=== PATIENT | male | born 1955 | race Asian ===

== ENCOUNTER 2020-09-09 17:36 | Inpatient (IN) | payer MEDICARE, OTHER ==
[~2020-09-09] VITALS: Ht 165.1 cm; Wt 92.5 kg
[2020-09-09] MEDS ORDERED: ALBUTEROL SULFATE 8 GM HFA.AER.AD IH PRN (20:30)
[2020-09-09] MEDS ORDERED: DEXTROSE 50% 50 ML DISP.SYRIN IV PRN (20:30)
[2020-09-09] MEDS ORDERED: ONDANSETRON 4 MG/2 ML VIAL IV PRN (20:30)
[2020-09-09] MEDS ORDERED: ACET-2154 PO (20:52)
[2020-09-09] MEDS ORDERED: GABA-532 PO (20:52)
[2020-09-09] MEDS ORDERED: INSU100I26 SQ (20:52)
[2020-09-09] MEDS ORDERED: ASPI81TA31 PO (20:52)
[2020-09-09] MEDS ORDERED: METF-442 PO (20:52)
[2020-09-09] MEDS ORDERED: SIMV10TA98 PO (20:52)
[2020-09-09] MEDS ORDERED: QUIN20TA18 PO (20:52)
[2020-09-09] MEDS ORDERED: INSU100V39 SQ (20:52)
[2020-09-09] MEDS: BLOOD SUGAR DIAGNOSTIC 1 EACH STRIP VI SCH (21:00)
[2020-09-09 22:00] VITALS: BP 128/83
--- NOTE | 2020-09-09 22:00 | NUR ---
Admitted a 65 yr old male who was transferred from [facility] for continuity of care via rney accompanied by 2 bilingual research interviewer .DX of covid 19 PNA.Patient alert x 4.speech clear.On RA,on isolation precaution.Denies pain.No acute distress noted.Ambulates to bathroom .Voided well.IV on right AC 20 g patent and intact.No s/s of infiltration.Bs checked 81. Body assessment done.Skin intact.Troy Rollins aware of patient's admission.Medication reconciled .Safety measures in place.Call light and belonging are with in reach.Will continue to monitor.
[2020-09-09] MEDS ORDERED: AZITHROMYCIN 500 MG VIAL IV ONE (23:05)
[2020-09-10] VITALS (7 sets, daily range): BP systolic 98–156; BP diastolic 53–76
[2020-09-10] MEDS: ACETAMINOPHEN 325 MG TABLET PO PRN ×4 (02:21→23:27)
[2020-09-10] MEDS: BLOOD SUGAR DIAGNOSTIC 1 EACH STRIP VI SCH ×4 (06:41→20:43)
--- NOTE | 2020-09-10 06:52 | NUR ---
Patient slept intermittently .C/o discomfort last night.Medicated with tylenol with good result.No acute distress noted through out the night.All needs anticipated and met accordingly.Will endorse to oncoming shift.
[2020-09-10 07:39] LABS: BASOPHILS % (AUTO) 0.6 % (0.0-2.0); EOSINOPHILS % (AUTO) 0.2 % (0.0-7.0); HEMATOCRIT 34.5 % (36.7-47.1); HEMOGLOBIN 11.4 g/dL (12.5-16.3); LYMPHOCYTES # (AUTO) 0.8 K/uL (20.0-40.0); LYMPHOCYTES % (AUTO) 10.6 % (20.5-51.5); MEAN CORPUSCULAR HEMOGLOBIN 28.7 uug (23.8-33.4); MEAN CORPUSCULAR HGB CONC 33 g/dL (32.5-36.3); MEAN CORPUSCULAR VOLUME 86.5 fL (73.0-96.2); MONOCYTES # (AUTO) 0.6 K/uL (2.0-10.0); MONOCYTES % (AUTO) 7.2 % (0.0-11.0); NEUTROPHILS # (AUTO) 6.4 K/uL (1.8-8.9); NEUTROPHILS % (AUTO) 81.4 % (38.5-71.5); PLATELET COUNT (AUTO) 298 K/uL (152-348); RED BLOOD CELL COUNT(AUTO) 3.98 MIL/uL (4.06-5.63); WHITE BLOOD COUNT (AUTO) 7.8 K/uL (3.6-10.2)
[2020-09-10 08:06] LABS: BILIRUBIN,TOTAL 0.5 mg/dL (0.2-1.0); CREATININE 1.3 mg/dL (0.6-1.3); POTASSIUM 4.1 mmol/L (3.5-5.1); TOTAL PROTEIN, SERUM 8.2 g/dL (6.4-8.2)
[2020-09-10] MEDS: INSULIN REGULAR, HUMAN 300 UNIT/3 ML VIAL SQ PRN ×2 (08:15→11:56)
[2020-09-10] MEDS: ENOXAPARIN SODIUM 30 MG/0.3 ML DISP.SYRIN SUBCUT SCH (08:15)
[2020-09-10] MEDS: ASPIRIN 81 MG TAB.CHEW PO SCH (08:17)
[2020-09-10] MEDS ORDERED: GABAPENTIN 100 MG CAPSULE PO SCH (09:00)
[2020-09-10] MEDS ORDERED: [UNRECOGNIZED DRUG - REMARK] (11:28)
[2020-09-10] MEDS: LISINOPRIL 20 MG TABLET PO SCH (11:54)
[2020-09-10] MEDS ORDERED: glipiZIDE 5 MG TABLET PO SCH (13:30)
[2020-09-10] MEDS: TRIAMCINOLONE ACET 0.1% OINT 80 GM TUBE TP SCH ×2 (14:40→16:53)
[2020-09-10] MEDS: DEXAMETHASONE SOD PHOSPHATE 10 MG INJ IV SCH (14:44)
[2020-09-10] MEDS ORDERED: SIMVASTATIN 10 MG TABLET PO SCH ×2 (18:00)
--- NOTE | 2020-09-10 19:02 | NUR ---
Patient had Temp 103 earlier. Gave Tylenol and applied ice packs. Patient stated feeling better and temp 98.5. No other complaints at this time
[2020-09-10] MEDS: INSULIN REGULAR, HUMAN 300 UNITS/3 ML VIAL SQ PRN (20:45)
[2020-09-10] MEDS: AZITHROMYCIN IV 500 MG in IV DEXTROSE 5% 250 ML IV SCH (23:17)
[2020-09-11 00:02] VITALS: BP 128/70
[2020-09-11 04:00] VITALS: BP 121/63
[2020-09-11] MEDS: glipiZIDE 5 MG TABLET PO SCH ×2 (06:16→17:27)
[2020-09-11] MEDS: BLOOD SUGAR DIAGNOSTIC 1 EACH STRIP VI SCH ×4 (06:21→21:07)
--- NOTE | 2020-09-11 07:30 | NUR ---
Received patient in bed awake alert and oriented times 4. No sign of distress noted at this time. No SOB noted. Patient is in isolation. Safety precautions in place with call light and belongings within reach. Will continue to monitor.
[2020-09-11] MEDS: DEXAMETHASONE SOD PHOSPHATE 10 MG INJ IV SCH (08:37)
[2020-09-11] MEDS: INSULIN REGULAR, HUMAN 300 UNIT/3 ML VIAL SQ PRN ×3 (08:42→17:31)
[2020-09-11] MEDS: ENOXAPARIN SODIUM 30 MG/0.3 ML DISP.SYRIN SUBCUT SCH (08:43)
[2020-09-11] MEDS: LISINOPRIL 20 MG TABLET PO SCH (08:52)
[2020-09-11] MEDS: ASPIRIN 81 MG TAB.CHEW PO SCH (08:53)
[2020-09-11] MEDS: TRIAMCINOLONE ACET 0.1% OINT 80 GM TUBE TP SCH ×2 (08:53→17:27)
[2020-09-11] MEDS ORDERED: CEFTRIAXONE 1 G VIAL IM SCH (11:15)
[2020-09-11 12:04] VITALS: BP 132/63
[2020-09-11] MEDS: CEFTRIAXONE 1 G in IV DEXTROSE 5% 50 ML IV SCH (13:47)
[2020-09-11 16:08] VITALS: BP 126/60
--- NOTE | 2020-09-11 18:59 | NUR ---
Patient is resting in bed. No sign of distress noted. Gave all medications as ordered. Safety precautions are in place with call light and belongings within reach. Will endorse to oncoming nurse.
--- NOTE | 2020-09-11 19:30 | NUR ---
Pt received in bed, awake, Denies any SOB or pain at this time. On RA sating at 96%. Will continue to monitor.
[2020-09-11 20:12] VITALS: BP 141/70
[2020-09-11] MEDS: SIMVASTATIN 20 MG TABLET PO SCH (20:42)
[2020-09-11] MEDS: INSULIN REGULAR, HUMAN 300 UNITS/3 ML VIAL SQ PRN (21:11)
[2020-09-11] MEDS: AZITHROMYCIN IV 500 MG in IV DEXTROSE 5% 250 ML IV SCH (22:06)
[2020-09-12 00:26] VITALS: BP 132/69
[2020-09-12 04:16] VITALS: BP 139/67
[2020-09-12] MEDS: glipiZIDE 5 MG TABLET PO SCH ×2 (06:30→16:31)
[2020-09-12] MEDS: BLOOD SUGAR DIAGNOSTIC 1 EACH STRIP VI SCH ×4 (06:34→21:07)
[2020-09-12] MEDS: INSULIN REGULAR, HUMAN 300 UNIT/3 ML VIAL SQ PRN ×3 (06:36→17:44)
[2020-09-12 08:21] LABS: BASOPHILS % (AUTO) 0.3 % (0.0-2.0); HEMATOCRIT 32.1 % (36.7-47.1); HEMOGLOBIN 10.8 g/dL (12.5-16.3); LYMPHOCYTES # (AUTO) 1.2 K/uL (20.0-40.0); LYMPHOCYTES % (AUTO) 11.2 % (20.5-51.5); MEAN CORPUSCULAR HEMOGLOBIN 28.6 uug (23.8-33.4); MEAN CORPUSCULAR HGB CONC 34 g/dL (32.5-36.3); MEAN CORPUSCULAR VOLUME 85.1 fL (73.0-96.2); MONOCYTES # (AUTO) 0.7 K/uL (2.0-10.0); MONOCYTES % (AUTO) 6.2 % (0.0-11.0); NEUTROPHILS # (AUTO) 8.9 K/uL (1.8-8.9); NEUTROPHILS % (AUTO) 82.3 % (38.5-71.5); PLATELET COUNT (AUTO) 316 K/uL (152-348); RED BLOOD CELL COUNT(AUTO) 3.77 MIL/uL (4.06-5.63); WHITE BLOOD COUNT (AUTO) 10.8 K/uL (3.6-10.2)
[2020-09-12] MEDS: ASPIRIN 81 MG TAB.CHEW PO SCH (08:25)
[2020-09-12] MEDS: ENOXAPARIN SODIUM 30 MG/0.3 ML DISP.SYRIN SUBCUT SCH (08:27)
[2020-09-12] MEDS: TRIAMCINOLONE ACET 0.1% OINT 80 GM TUBE TP SCH ×2 (08:27→17:00)
[2020-09-12] MEDS: LISINOPRIL 20 MG TABLET PO SCH (08:32)
[2020-09-12 08:45] LABS: BILIRUBIN,TOTAL 0.5 mg/dL (0.2-1.0); CREATININE 1.3 mg/dL (0.6-1.3); MAGNESIUM 2.5 mg/dL (1.8-2.4); PHOSPHOROUS 1.9 mg/dL (2.5-4.9); POTASSIUM 4.3 mmol/L (3.5-5.1); TOTAL PROTEIN, SERUM 7.8 g/dL (6.4-8.2)
[2020-09-12] MEDS: DEXAMETHASONE SOD PHOSPHATE 10 MG INJ IV SCH ×2 (09:00→14:28)
--- NOTE | 2020-09-12 09:43 | NUR ---
Pt slept throughout the night. Denies any pain or SOB at this time. Tolerated all medications well. Pt is on RA with no s/s of respiratory distress. Sinus rhythm on the monitor. Safety and comfort provided.
--- NOTE | 2020-09-12 09:43 | NUR ---
Not able to give Decadron IV due to infiltration of IV. Holding medication until new IV can be started
[2020-09-12] MEDS ORDERED: NEUTRA PHOS PACKET PO ONE (10:45)
[2020-09-12 12:42] VITALS: BP 146/77
[2020-09-12] MEDS: ACETAMINOPHEN 325 MG TABLET PO PRN ×2 (13:37→21:07)
[2020-09-12] MEDS: CEFTRIAXONE 1 G in IV DEXTROSE 5% 50 ML IV SCH (14:41)
--- NOTE | 2020-09-12 14:44 | NUR ---
Midline was inserted and Decadron dose was given
--- NOTE | 2020-09-12 15:30 | NUR ---
RECEIVED PT AWAKE, ALERT AND ORIENTEDX4..IV INTACT. SAFETY AND COMFORT PROVIDED. WILL CONTINUE TO MONITOR.
[2020-09-12 16:02] VITALS: BP 113/73
[2020-09-12 20:34] VITALS: BP 151/68
[2020-09-12] MEDS: SIMVASTATIN 20 MG TABLET PO SCH (21:07)
[2020-09-12] MEDS: INSULIN REGULAR, HUMAN 300 UNITS/3 ML VIAL SQ PRN (21:09)
[2020-09-12] MEDS: AZITHROMYCIN IV 500 MG in IV DEXTROSE 5% 250 ML IV SCH (22:36)
[2020-09-13 00:48] VITALS: BP 118/72
[2020-09-13 05:53] VITALS: BP 141/72
[2020-09-13] MEDS: BLOOD SUGAR DIAGNOSTIC 1 EACH STRIP VI SCH ×4 (06:33→21:18)
[2020-09-13] MEDS: glipiZIDE 5 MG TABLET PO SCH ×2 (06:34→16:44)
--- NOTE | 2020-09-13 06:40 | NUR ---
PT IN NO ACUTE DISTRESS. PRESCRIBED MEDICATION GIVEN AND PT TOLERATED IT WELL.RECENT BLOOD SUGAR IS 201. PT NOTED TO STILL HAVE COUGH. SAFETY AND COMFORT PROVIDED. WILL ENDORSE TO INCOMING NURSE FOR CONTINUITY OF CARE.
--- NOTE | 2020-09-13 07:30 | NUR ---
Received patient in bed awake alert and oriented times 4. No sign of distress noted at this time. No SOB noted. Patient is in isolation for Covid 19. Safety precautions in place with call light and belongings within reach. Will continue to monitor.
[2020-09-13] MEDS: ASPIRIN 81 MG TAB.CHEW PO SCH (08:27)
[2020-09-13] MEDS: DEXAMETHASONE SOD PHOSPHATE 10 MG INJ IV SCH (08:27)
[2020-09-13] MEDS: INSULIN REGULAR, HUMAN 300 UNIT/3 ML VIAL SQ PRN ×3 (08:29→17:47)
[2020-09-13] MEDS: LISINOPRIL 20 MG TABLET PO SCH (08:43)
[2020-09-13] MEDS: ENOXAPARIN SODIUM 30 MG/0.3 ML DISP.SYRIN SUBCUT SCH (08:46)
[2020-09-13] MEDS: TRIAMCINOLONE ACET 0.1% OINT 80 GM TUBE TP SCH ×2 (08:46→16:47)
[2020-09-13] MEDS: ACETAMINOPHEN 325 MG TABLET PO PRN ×2 (09:09→21:00)
[2020-09-13 11:53] VITALS: BP 132/64
[2020-09-13] MEDS: CEFTRIAXONE 1 G in IV DEXTROSE 5% 50 ML IV SCH (12:38)
[2020-09-13 16:18] VITALS: BP 139/71
--- NOTE | 2020-09-13 18:55 | NUR ---
Patient is resting in bed, patient's saturation has been in the 90-91 range. MD made aware. Chest xray ordered for tomorrow. All medications given as ordered. Safety precautions in place with call light and belongings within reach. Will endorse to the oncoming nurse.
--- NOTE | 2020-09-13 19:30 | NUR ---
RECEIVED PT AWAKE, ALERT AND ORIENTEDX4. PT IN O ACUTE DISTRESS. IV INTACT. SAFETY AND COMFORT PROVIDED. WILL CONTINUE TO MONITOR.
[2020-09-13 20:00] VITALS: BP 132/71
[2020-09-13] MEDS: SIMVASTATIN 20 MG TABLET PO SCH (20:55)
[2020-09-13] MEDS: INSULIN REGULAR, HUMAN 300 UNITS/3 ML VIAL SQ PRN (21:19)
[2020-09-13] MEDS: AZITHROMYCIN IV 500 MG in IV DEXTROSE 5% 250 ML IV SCH (22:23)
[2020-09-13 23:59] VITALS: BP 117/67
[2020-09-14 04:53] VITALS: BP 123/69
--- NOTE | 2020-09-14 06:15 | NUR ---
PT SLEPT INTERMITTENTLY. PT IN NO RESPIRATORY DISTRESS. IV INTACT. PT WAS PUT ON OXYGEN AT 2L NASAL CANNULA BECAUSE PT OXYGEN SATURATION IS 88-89%. PT TOLERATED IT WELL. TITRATE IT AGAIN AND NOW ON ROOM AIR AND OXYGEN SATURATION IS 92%. PRESCRIBED MEDICATION GIVEN AND PT TOLERATED IT WELL. PT AFEBRILE. SAFETY AND COMFORT PROVIDED. ALL NEEDS ARE MET. WILL ENDORSE TO INCOMING NURSE FOR CONTINUITY OF CARE.
[2020-09-14] MEDS: BLOOD SUGAR DIAGNOSTIC 1 EACH STRIP VI SCH ×4 (06:40→20:18)
[2020-09-14] MEDS: glipiZIDE 5 MG TABLET PO SCH ×2 (06:40→16:24)
--- NOTE | 2020-09-14 06:48 | NUR ---
PT PUT O 2L NASAL CANNULA . OXYGEN SATURATION AT 88%. CHARGE NURSE AWARE. PT TOLERATING 2L OXYGEN. WILL CONTINUE TO MONITOR.
[2020-09-14 08:12] LABS: BASOPHILS % (AUTO) 0.1 % (0.0-2.0); HEMATOCRIT 33.9 % (36.7-47.1); HEMOGLOBIN 11.5 g/dL (12.5-16.3); LYMPHOCYTES # (AUTO) 1.1 K/uL (20.0-40.0); LYMPHOCYTES % (AUTO) 5.1 % (20.5-51.5); MEAN CORPUSCULAR HGB CONC 34 g/dL (32.5-36.3); MEAN CORPUSCULAR VOLUME 85.5 fL (73.0-96.2); MONOCYTES % (AUTO) 4.9 % (0.0-11.0); NEUTROPHILS # (AUTO) 18.7 K/uL (1.8-8.9); NEUTROPHILS % (AUTO) 89.9 % (38.5-71.5); PLATELET COUNT (AUTO) 441 K/uL (152-348); RED BLOOD CELL COUNT(AUTO) 3.97 MIL/uL (4.06-5.63); WHITE BLOOD COUNT (AUTO) 20.8 K/uL (3.6-10.2)
[2020-09-14] MEDS: INSULIN REGULAR, HUMAN 300 UNIT/3 ML VIAL SQ PRN ×3 (08:26→16:59)
[2020-09-14 08:30] LABS: CREATININE 1.1 mg/dL (0.6-1.3); MAGNESIUM 2.8 mg/dL (1.8-2.4); PHOSPHOROUS 2.6 mg/dL (2.5-4.9); POTASSIUM 4.6 mmol/L (3.5-5.1)
[2020-09-14] MEDS: DEXAMETHASONE SOD PHOSPHATE 10 MG INJ IV SCH (09:12)
[2020-09-14] MEDS: ASPIRIN 81 MG TAB.CHEW PO SCH (09:12)
[2020-09-14] MEDS: LISINOPRIL 20 MG TABLET PO SCH (09:13)
[2020-09-14] MEDS: TRIAMCINOLONE ACET 0.1% OINT 80 GM TUBE TP SCH ×2 (09:14→17:07)
[2020-09-14] MEDS: ENOXAPARIN SODIUM 30 MG/0.3 ML DISP.SYRIN SUBCUT SCH (09:14)
[2020-09-14 12:00] VITALS: BP 142/74
[2020-09-14] MEDS: CEFTRIAXONE 1 G in IV DEXTROSE 5% 50 ML IV SCH (12:11)
[2020-09-14 16:00] VITALS: BP 151/70
[2020-09-14] MEDS ORDERED: REMDESIVIR (CHARGED) 200 MG in IV NORMAL SALINE 210 ML IV ONE (16:00)
--- NOTE | 2020-09-14 16:15 | NUR ---
SEEN BY REGIS VILLASEÑOR NP. PATIENT AWARE OF NEW MEDICATION TO BE STARTED TODAY. PATIENT ON 2L O2 NC, SATURATING BETWEEN 89-92%. ABLE TO AMBULATE. DENIES PAIN AT THIS TIME. NO S/S OF DISTRESS OR SOB NOTED AT THIS TIME. IV ACCESS ON RIGHT UPPER ARM MIDLINE, FLUSHING AND PATENT. ALL NEEDS MET. SAFETY PRECAUTIONS IN PLACE. WILL CONTINUE TO MONITOR.
--- NOTE | 2020-09-14 16:42 | NUR ---
ADMINISTERED REMDESIVIR. TOLERATING WELL. BP 145/52, HR 64. DENIES PAIN OR SOB.
[2020-09-14 16:58] LABS: HEMATOCRIT 33.9 % (36.7-47.1); HEMOGLOBIN 10.8 g/dL (12.5-16.3); LYMPHOCYTES # (AUTO) 0.6 K/uL (20.0-40.0); MEAN CORPUSCULAR HEMOGLOBIN 27.4 uug (23.8-33.4); MEAN CORPUSCULAR HGB CONC 32 g/dL (32.5-36.3); MEAN CORPUSCULAR VOLUME 86.1 fL (73.0-96.2); MONOCYTES # (AUTO) 0.5 K/uL (2.0-10.0); MONOCYTES % (AUTO) 2.8 % (0.0-11.0); NEUTROPHILS # (AUTO) 18.1 K/uL (1.8-8.9); NEUTROPHILS % (AUTO) 94.2 % (38.5-71.5); PLATELET COUNT (AUTO) 442 K/uL (152-348); RED BLOOD CELL COUNT(AUTO) 3.94 MIL/uL (4.06-5.63); WHITE BLOOD COUNT (AUTO) 19.2 K/uL (3.6-10.2)
--- NOTE | 2020-09-14 19:00 | NUR ---
Received patient from AM nurse. VSS. Safety measures in place. No distress. Will continue to monitor and assess.
[2020-09-14 20:00] VITALS: BP 145/65
[2020-09-14] MEDS: SIMVASTATIN 20 MG TABLET PO SCH (20:09)
[2020-09-14] MEDS: INSULIN GLARGINE,HUM 300 UNITS/3 ML CARTRIDGE SQ SCH (20:17)
[2020-09-14] MEDS: INSULIN REGULAR, HUMAN 300 UNITS/3 ML VIAL SQ PRN (20:18)
[2020-09-15 00:57] VITALS: BP 125/65
[2020-09-15 04:44] VITALS: BP 129/67
[2020-09-15] MEDS: glipiZIDE 5 MG TABLET PO SCH ×2 (06:21→16:37)
[2020-09-15] MEDS: BLOOD SUGAR DIAGNOSTIC 1 EACH STRIP VI SCH ×4 (06:26→20:52)
--- NOTE | 2020-09-15 06:40 | NUR ---
Patient handed to AM nurse at shift change. VSS. Stable condition. No distress. Will endorse all information to AM nurse.
[2020-09-15 06:59] LABS: BASOPHILS % (AUTO) 0.1 % (0.0-2.0); HEMATOCRIT 33.8 % (36.7-47.1); HEMOGLOBIN 11.1 g/dL (12.5-16.3); LYMPHOCYTES # (AUTO) 1.4 K/uL (20.0-40.0); LYMPHOCYTES % (AUTO) 8.1 % (20.5-51.5); MEAN CORPUSCULAR HEMOGLOBIN 28.3 uug (23.8-33.4); MEAN CORPUSCULAR HGB CONC 33 g/dL (32.5-36.3); MONOCYTES # (AUTO) 1.3 K/uL (2.0-10.0); MONOCYTES % (AUTO) 7.7 % (0.0-11.0); NEUTROPHILS # (AUTO) 14.7 K/uL (1.8-8.9); NEUTROPHILS % (AUTO) 84.1 % (38.5-71.5); PLATELET COUNT (AUTO) 493 K/uL (152-348); RED BLOOD CELL COUNT(AUTO) 3.93 MIL/uL (4.06-5.63); WHITE BLOOD COUNT (AUTO) 17.4 K/uL (3.6-10.2)
[2020-09-15] MEDS: ASPIRIN 81 MG TAB.CHEW PO SCH (08:17)
[2020-09-15] MEDS: LISINOPRIL 20 MG TABLET PO SCH (08:25)
[2020-09-15] MEDS: DEXAMETHASONE SOD PHOSPHATE 10 MG INJ IV SCH (08:25)
[2020-09-15] MEDS: ENOXAPARIN SODIUM 30 MG/0.3 ML DISP.SYRIN SUBCUT SCH (08:26)
[2020-09-15] MEDS: TRIAMCINOLONE ACET 0.1% OINT 80 GM TUBE TP SCH ×2 (08:27→17:00)
[2020-09-15] MEDS: INSULIN REGULAR, HUMAN 300 UNIT/3 ML VIAL SQ PRN ×4 (09:00→20:50)
[2020-09-15 09:44] LABS: BILIRUBIN,DIRECT 0.2 mg/dL (0.0-0.2); BILIRUBIN,TOTAL 0.3 mg/dL (0.2-1.0); POTASSIUM 3.9 mmol/L (3.5-5.1); TOTAL PROTEIN, SERUM 7.8 g/dL (6.4-8.2)
[2020-09-15 12:00] VITALS: BP 139/69
[2020-09-15] MEDS: CEFTRIAXONE 1 G in IV DEXTROSE 5% 50 ML IV SCH (13:26)
[2020-09-15 16:00] VITALS: BP 121/58
[2020-09-15] MEDS: REMDESIVIR (CHARGED) 100 MG in IV NORMAL SALINE 230 ML IV SCH (17:29)
--- NOTE | 2020-09-15 18:16 | NUR ---
Received patient AOx4, with Midline on his Right Arm , patient on Droplet Isolation for being positive with Covid 19, patient oxygen 2 liters per minutes, on sinus rhythm , patient denies SOB, no distress, patient tolerated remdesivir, no sign of distress at this time
--- NOTE | 2020-09-15 20:08 | NUR ---
Received patient in bed.ALOX4 .Denies SOB. no s/s of distress noted. O2 inhalation at 2LPM via NC saturating at 92%.On Tele SR,Midline patent and intact on Right upper arm.Continue isolation for Covid.Called lab unit to follow up covid plasma convalescent.Per lab not available at this time. Patient made aware and will continue to follow up.Continue safety measures.
[2020-09-15 20:12] VITALS: BP 128/65
[2020-09-15] MEDS: SIMVASTATIN 20 MG TABLET PO SCH (20:36)
[2020-09-15] MEDS: INSULIN GLARGINE,HUM 300 UNITS/3 ML CARTRIDGE SQ SCH (20:51)
[2020-09-16] VITALS (9 sets, daily range): BP systolic 120–158; BP diastolic 58–78
[2020-09-16] MEDS: glipiZIDE 5 MG TABLET PO SCH ×2 (06:36→17:30)
[2020-09-16] MEDS: BLOOD SUGAR DIAGNOSTIC 1 EACH STRIP VI SCH ×4 (06:37→20:40)
[2020-09-16 07:31] LABS: BASOPHILS # (AUTO) 0.1 K/uL (0.0-8.0); BASOPHILS % (AUTO) 0.5 % (0.0-2.0); EOSINOPHILS % (AUTO) 0.1 % (0.0-7.0); HEMOGLOBIN 11.7 g/dL (12.5-16.3); LYMPHOCYTES # (AUTO) 1.4 K/uL (20.0-40.0); LYMPHOCYTES % (AUTO) 8.5 % (20.5-51.5); MEAN CORPUSCULAR HEMOGLOBIN 27.7 uug (23.8-33.4); MEAN CORPUSCULAR HGB CONC 33 g/dL (32.5-36.3); MEAN CORPUSCULAR VOLUME 85.4 fL (73.0-96.2); MONOCYTES # (AUTO) 1.5 K/uL (2.0-10.0); MONOCYTES % (AUTO) 9.2 % (0.0-11.0); NEUTROPHILS % (AUTO) 81.7 % (38.5-71.5); PLATELET COUNT (AUTO) 587 K/uL (152-348); RED BLOOD CELL COUNT(AUTO) 4.22 MIL/uL (4.06-5.63); WHITE BLOOD COUNT (AUTO) 15.9 K/uL (3.6-10.2)
[2020-09-16 07:47] LABS: BILIRUBIN,DIRECT 0.2 mg/dL (0.0-0.2); BILIRUBIN,TOTAL 0.3 mg/dL (0.2-1.0); CREATININE 1.1 mg/dL (0.6-1.3); MAGNESIUM 2.4 mg/dL (1.8-2.4); PHOSPHOROUS 3.4 mg/dL (2.5-4.9); POTASSIUM 4.1 mmol/L (3.5-5.1); TOTAL PROTEIN, SERUM 8.2 g/dL (6.4-8.2)
[2020-09-16] MEDS: INSULIN REGULAR, HUMAN 300 UNIT/3 ML VIAL SQ PRN ×3 (08:15→17:54)
[2020-09-16] MEDS: LISINOPRIL 20 MG TABLET PO SCH (09:37)
[2020-09-16] MEDS: ASPIRIN 81 MG TAB.CHEW PO SCH (09:37)
[2020-09-16] MEDS: DEXAMETHASONE SOD PHOSPHATE 10 MG INJ IV SCH (09:38)
[2020-09-16] MEDS: TRIAMCINOLONE ACET 0.1% OINT 80 GM TUBE TP SCH ×2 (09:40→17:31)
[2020-09-16] MEDS: ENOXAPARIN SODIUM 30 MG/0.3 ML DISP.SYRIN SUBCUT SCH (09:45)
[2020-09-16] MEDS: CEFTRIAXONE 1 G in IV DEXTROSE 5% 50 ML IV SCH (14:29)
--- NOTE | 2020-09-16 18:00 | NUR ---
Patient received Convalescent Plasma. No s/s of allergy. Tolerated well and monitored closely.
[2020-09-16] MEDS: REMDESIVIR (CHARGED) 100 MG in IV NORMAL SALINE 230 ML IV SCH (18:36)
[2020-09-16] MEDS: SIMVASTATIN 20 MG TABLET PO SCH (20:33)
[2020-09-16] MEDS: INSULIN REGULAR, HUMAN 300 UNITS/3 ML VIAL SQ PRN (20:39)
[2020-09-16] MEDS: INSULIN GLARGINE,HUM 300 UNITS/3 ML CARTRIDGE SQ SCH (20:39)
[2020-09-17] VITALS (7 sets, daily range): BP systolic 110–135; BP diastolic 50–69
--- NOTE | 2020-09-17 05:10 | NUR ---
PATIENT RECEIVED ALL DUE MEDICATIONS. TOLERATED WELL. NO RESPIRATORY DISTRESS OR SHORTNESS OF BREATH. PATIENT STILL WITH NONPRODUCTIVE COUGH. REMAINED AFEBRILE THROUGHOUT SHIFT. NO COMPLAINTS OF PAIN. ALL NEEDS ATTENDED.
[2020-09-17 06:18] LABS: BASOPHILS % (AUTO) 0.2 % (0.0-2.0); EOSINOPHILS % (AUTO) 0.2 % (0.0-7.0); HEMATOCRIT 34.2 % (36.7-47.1); HEMOGLOBIN 11.5 g/dL (12.5-16.3); LYMPHOCYTES # (AUTO) 1.7 K/uL (20.0-40.0); LYMPHOCYTES % (AUTO) 10.5 % (20.5-51.5); MEAN CORPUSCULAR HEMOGLOBIN 28.5 uug (23.8-33.4); MEAN CORPUSCULAR HGB CONC 34 g/dL (32.5-36.3); MEAN CORPUSCULAR VOLUME 85.1 fL (73.0-96.2); MONOCYTES # (AUTO) 1.4 K/uL (2.0-10.0); MONOCYTES % (AUTO) 8.9 % (0.0-11.0); NEUTROPHILS % (AUTO) 80.2 % (38.5-71.5); PLATELET COUNT (AUTO) 592 K/uL (152-348); RED BLOOD CELL COUNT(AUTO) 4.02 MIL/uL (4.06-5.63); WHITE BLOOD COUNT (AUTO) 16.1 K/uL (3.6-10.2)
[2020-09-17] MEDS: BLOOD SUGAR DIAGNOSTIC 1 EACH STRIP VI SCH ×4 (06:45→21:30)
[2020-09-17] MEDS: glipiZIDE 5 MG TABLET PO SCH ×2 (06:45→16:08)
[2020-09-17 06:46] LABS: MAGNESIUM 2.3 mg/dL (1.8-2.4); PHOSPHOROUS 3.9 mg/dL (2.5-4.9)
[2020-09-17 06:58] LABS: BILIRUBIN,DIRECT 0.1 mg/dL (0.0-0.2); BILIRUBIN,TOTAL 0.4 mg/dL (0.2-1.0); CREATININE 1.1 mg/dL (0.6-1.3); POTASSIUM 4.1 mmol/L (3.5-5.1); TOTAL PROTEIN, SERUM 7.6 g/dL (6.4-8.2)
--- NOTE | 2020-09-17 09:00 | NUR ---
Patient in bed alert AOx4, on O2 @ 3L, saturating 87-88% but denied SOB or distress, increased O2 @ 4L, saturating 91-92%. Denied chest pain. Safety precaution in place
[2020-09-17] MEDS: LISINOPRIL 20 MG TABLET PO SCH (09:43)
[2020-09-17] MEDS: ASPIRIN 81 MG TAB.CHEW PO SCH (09:43)
[2020-09-17] MEDS: DEXAMETHASONE SOD PHOSPHATE 10 MG INJ IV SCH (09:44)
[2020-09-17] MEDS: TRIAMCINOLONE ACET 0.1% OINT 80 GM TUBE TP SCH ×2 (09:44→17:16)
[2020-09-17] MEDS: ENOXAPARIN SODIUM 30 MG/0.3 ML DISP.SYRIN SUBCUT SCH (09:53)
[2020-09-17] MEDS: INSULIN REGULAR, HUMAN 300 UNIT/3 ML VIAL SQ PRN ×2 (12:29→16:45)
--- NOTE | 2020-09-17 16:55 | NUR ---
Patient O2 was decreased 2L earlier by hospitalist per patient, saturating 87%, increased to 3L, saturating 91-92% with no SOB or distress. Will titrate O2 down as able per MD order. Tolerated Remdesivir, no headache, dizziness, and hypotension
[2020-09-17] MEDS: REMDESIVIR (CHARGED) 100 MG in IV NORMAL SALINE 230 ML IV SCH (17:16)
[2020-09-17] MEDS: SIMVASTATIN 20 MG TABLET PO SCH (21:25)
[2020-09-17] MEDS: INSULIN REGULAR, HUMAN 300 UNITS/3 ML VIAL SQ PRN (21:35)
[2020-09-17] MEDS: INSULIN GLARGINE,HUM 300 UNITS/3 ML CARTRIDGE SQ SCH (21:36)
[2020-09-18 00:09] VITALS: BP 117/55
[2020-09-18 04:16] VITALS: BP 118/63
[2020-09-18] MEDS: glipiZIDE 5 MG TABLET PO SCH ×2 (06:39→17:18)
[2020-09-18] MEDS: BLOOD SUGAR DIAGNOSTIC 1 EACH STRIP VI SCH ×4 (06:39→21:06)
--- NOTE | 2020-09-18 06:42 | NUR ---
Patient ALOx4. Denied SOB,no c/o pain .Noted with fluctuating 02 sat from 82% - 90% with O2 at 2LPM .Titrated to 4LPm O2 ,saturating at 92%-94%.HOB remain elevated.Compliant with medication.Iv on right hand patent and intact.Continue on isolation for covid.Continue safety measures.
[2020-09-18 07:04] VITALS: BP 118/63
--- NOTE | 2020-09-18 07:10 | NUR ---
RECEIVED PT IN BED AWAKE, AOX4, DENIES CHEST PAIN. CONTINUES TO HAVE SOB AND IS ON 6L NC. . ISOLATION PRECAUTIONS IN PLACE. ALL NEEDS MET AT THIS TIME. SAFETY PRECAUTIONS IN PLACE. CALL LIGHT IN REACH. BED IN LOW AND LOCKED POSITION. WILL CONTINUE TO MONITOR.
[2020-09-18] MEDS: ASPIRIN 81 MG TAB.CHEW PO SCH (09:04)
[2020-09-18] MEDS: DEXAMETHASONE SOD PHOSPHATE 10 MG INJ IV SCH (09:06)
[2020-09-18] MEDS: ENOXAPARIN SODIUM 30 MG/0.3 ML DISP.SYRIN SUBCUT SCH (09:08)
[2020-09-18] MEDS: LISINOPRIL 20 MG TABLET PO SCH (09:14)
[2020-09-18] MEDS: TRIAMCINOLONE ACET 0.1% OINT 80 GM TUBE TP SCH ×2 (09:24→17:35)
[2020-09-18 10:22] LABS: BILIRUBIN,DIRECT 0.2 mg/dL (0.0-0.2); BILIRUBIN,TOTAL 0.5 mg/dL (0.2-1.0); CREATININE 1.1 mg/dL (0.6-1.3); PHOSPHOROUS 3.6 mg/dL (2.5-4.9); POTASSIUM 3.8 mmol/L (3.5-5.1); TOTAL PROTEIN, SERUM 7.4 g/dL (6.4-8.2)
[2020-09-18 10:33] LABS: BASOPHILS # (AUTO) 0.1 K/uL (0.0-8.0); BASOPHILS % (AUTO) 0.3 % (0.0-2.0); EOSINOPHILS # (AUTO) 0.2 K/uL (0.0-0.7); EOSINOPHILS % (AUTO) 1.2 % (0.0-7.0); HEMATOCRIT 33.4 % (36.7-47.1); LYMPHOCYTES # (AUTO) 1.6 K/uL (20.0-40.0); LYMPHOCYTES % (AUTO) 7.6 % (20.5-51.5); MEAN CORPUSCULAR HEMOGLOBIN 27.9 uug (23.8-33.4); MEAN CORPUSCULAR HGB CONC 33 g/dL (32.5-36.3); MEAN CORPUSCULAR VOLUME 84.6 fL (73.0-96.2); MONOCYTES # (AUTO) 1.2 K/uL (2.0-10.0); MONOCYTES % (AUTO) 5.9 % (0.0-11.0); NEUTROPHILS # (AUTO) 17.4 K/uL (1.8-8.9); PLATELET COUNT (AUTO) 608 K/uL (152-348); RED BLOOD CELL COUNT(AUTO) 3.95 MIL/uL (4.06-5.63); WHITE BLOOD COUNT (AUTO) 20.5 K/uL (3.6-10.2)
[2020-09-18 12:05] VITALS: BP 116/63
[2020-09-18] MEDS: INSULIN REGULAR, HUMAN 300 UNIT/3 ML VIAL SQ PRN ×2 (13:14→17:26)
[2020-09-18 15:58] VITALS: BP 112/87
[2020-09-18] MEDS: REMDESIVIR (CHARGED) 100 MG in IV NORMAL SALINE 230 ML IV SCH (17:32)
--- NOTE | 2020-09-18 20:00 | NUR ---
Received patient awake and alert. No s/s of acute distress noted. Pt on 6L NC denies SOB. quality assurance monitor in place, denies chest pain. Pt c/o cough and unable to sleep. Will notify physician for PRN order. Right FA IV patent and intact. Safety measures and COVID isolation intact. Will continue to monitor
[2020-09-18 20:48] VITALS: BP 109/57
[2020-09-18] MEDS: INSULIN REGULAR, HUMAN 300 UNITS/3 ML VIAL SQ PRN (21:05)
[2020-09-18] MEDS: INSULIN GLARGINE,HUM 300 UNITS/3 ML CARTRIDGE SQ SCH (21:06)
[2020-09-18] MEDS: SIMVASTATIN 20 MG TABLET PO SCH (21:06)
[2020-09-18] MEDS: GUAIFENESIN/CODEINE 5 ML LIQUID UDC PO PRN (21:21)
[2020-09-19 00:59] VITALS: BP 101/55
[2020-09-19 05:24] VITALS: BP 116/63
[2020-09-19] MEDS: GUAIFENESIN/CODEINE 5 ML LIQUID UDC PO PRN ×5 (06:23→22:26)
[2020-09-19] MEDS: glipiZIDE 5 MG TABLET PO SCH ×2 (06:35→17:10)
[2020-09-19] MEDS: BLOOD SUGAR DIAGNOSTIC 1 EACH STRIP VI SCH ×4 (06:36→21:30)
[2020-09-19] MEDS: DEXAMETHASONE SOD PHOSPHATE 10 MG INJ IV SCH (08:28)
[2020-09-19] MEDS: ASPIRIN 81 MG TAB.CHEW PO SCH (08:28)
[2020-09-19] MEDS: LISINOPRIL 20 MG TABLET PO SCH (08:28)
[2020-09-19] MEDS: ENOXAPARIN SODIUM 30 MG/0.3 ML DISP.SYRIN SUBCUT SCH (08:30)
[2020-09-19] MEDS: TRIAMCINOLONE ACET 0.1% OINT 80 GM TUBE TP SCH ×2 (08:32→17:07)
[2020-09-19 09:46] LABS: BASOPHILS # (AUTO) 0.1 K/uL (0.0-8.0); BASOPHILS % (AUTO) 0.2 % (0.0-2.0); EOSINOPHILS # (AUTO) 0.2 K/uL (0.0-0.7); EOSINOPHILS % (AUTO) 0.9 % (0.0-7.0); HEMATOCRIT 35.2 % (36.7-47.1); HEMOGLOBIN 11.8 g/dL (12.5-16.3); LYMPHOCYTES # (AUTO) 1.5 K/uL (20.0-40.0); LYMPHOCYTES % (AUTO) 6.7 % (20.5-51.5); MEAN CORPUSCULAR HEMOGLOBIN 28.5 uug (23.8-33.4); MEAN CORPUSCULAR HGB CONC 33 g/dL (32.5-36.3); MEAN CORPUSCULAR VOLUME 85.5 fL (73.0-96.2); MONOCYTES # (AUTO) 0.9 K/uL (2.0-10.0); MONOCYTES % (AUTO) 4.2 % (0.0-11.0); NEUTROPHILS # (AUTO) 19.2 K/uL (1.8-8.9); PLATELET COUNT (AUTO) 650 K/uL (152-348); RED BLOOD CELL COUNT(AUTO) 4.12 MIL/uL (4.06-5.63); WHITE BLOOD COUNT (AUTO) 21.8 K/uL (3.6-10.2)
[2020-09-19 11:09] LABS: CREATININE 1.2 mg/dL (0.6-1.3); MAGNESIUM 2.2 mg/dL (1.8-2.4); PHOSPHOROUS 3.4 mg/dL (2.5-4.9)
[2020-09-19 11:32] VITALS: BP 109/53
[2020-09-19] MEDS: DEXAMETHASONE SOD PHOSPHATE 4 MG INJ IV SCH (11:49)
[2020-09-19] MEDS: INSULIN REGULAR, HUMAN 300 UNIT/3 ML VIAL SQ PRN ×2 (11:57→17:12)
[2020-09-19 16:13] VITALS: BP 111/53
--- NOTE | 2020-09-19 17:55 | NUR ---
NOTIFIED FOR EVENING BLOOD SUGAR 421 COVERAGE GIVEN
--- NOTE | 2020-09-19 19:45 | NUR ---
PATIENT ALERT ORIENTED, NO SOB NO CHEST PAIN. PATIENT TELE MONITOR SINUS RHYTHM AT THIS TIME. PATIENT HAS NO COMPLAIN OF PAIN, BUT HAS DRY COUGH, WILL MEDICATE FOR COUGH. PATIENT REMAIN ON DROPLET PRECAUTION, CONT TO MONITOR.
[2020-09-19 20:16] VITALS: BP 100/47
[2020-09-19] MEDS: SIMVASTATIN 20 MG TABLET PO SCH (21:14)
[2020-09-19] MEDS: INSULIN GLARGINE,HUM 300 UNITS/3 ML CARTRIDGE SQ SCH (21:23)
[2020-09-19] MEDS: INSULIN REGULAR, HUMAN 300 UNITS/3 ML VIAL SQ PRN (21:24)
[2020-09-20 00:27] VITALS: BP 112/62
[2020-09-20 04:31] VITALS: BP 129/59
[2020-09-20] MEDS: BLOOD SUGAR DIAGNOSTIC 1 EACH STRIP VI SCH ×4 (05:43→20:38)
--- NOTE | 2020-09-20 06:47 | NUR ---
PATIENT ALERT ORIENTED, NO SOB NO CHEST PAIN, PATIENT STILL HAS DRY COUGH, MEDICATED WITH COUGH MEDS, WITH HELP, AFEBRILE REMAIN DROPLET PRECAUTION. CONT TO MONITOR.
[2020-09-20 07:53] LABS: CREATININE 1.2 mg/dL (0.6-1.3); MAGNESIUM 2.4 mg/dL (1.8-2.4); PHOSPHOROUS 4.2 mg/dL (2.5-4.9); POTASSIUM 4.8 mmol/L (3.5-5.1)
[2020-09-20 07:54] LABS: HEMATOCRIT 34.2 % (36.7-47.1); HEMOGLOBIN 11.3 g/dL (12.5-16.3); LYMPHOCYTES # (AUTO) 0.7 K/uL (20.0-40.0); LYMPHOCYTES % (AUTO) 3.7 % (20.5-51.5); MEAN CORPUSCULAR HEMOGLOBIN 28.4 uug (23.8-33.4); MEAN CORPUSCULAR HGB CONC 33 g/dL (32.5-36.3); MEAN CORPUSCULAR VOLUME 86.2 fL (73.0-96.2); NEUTROPHILS # (AUTO) 17.3 K/uL (1.8-8.9); NEUTROPHILS % (AUTO) 91.3 % (38.5-71.5); PLATELET COUNT (AUTO) 670 K/uL (152-348); RED BLOOD CELL COUNT(AUTO) 3.97 MIL/uL (4.06-5.63)
--- NOTE | 2020-09-20 08:00 | NUR ---
PT coughing when in supine position. Discussed plan of care with pt regarding taking his Robitussin for cough. Pt agreeable with plan. Call light is within reach.
[2020-09-20 08:10] VITALS: BP 114/50
[2020-09-20] MEDS: ASPIRIN 81 MG TAB.CHEW PO SCH (09:19)
[2020-09-20] MEDS: DEXAMETHASONE SOD PHOSPHATE 4 MG INJ IV SCH (09:19)
[2020-09-20] MEDS: ENOXAPARIN SODIUM 30 MG/0.3 ML DISP.SYRIN SUBCUT SCH (09:19)
[2020-09-20] MEDS: glipiZIDE 5 MG TABLET PO SCH ×2 (09:19→16:32)
[2020-09-20] MEDS: LISINOPRIL 20 MG TABLET PO SCH (09:20)
[2020-09-20] MEDS: TRIAMCINOLONE ACET 0.1% OINT 80 GM TUBE TP SCH ×2 (09:25→16:35)
[2020-09-20] MEDS: GUAIFENESIN/CODEINE 5 ML LIQUID UDC PO PRN ×3 (09:56→20:32)
--- NOTE | 2020-09-20 12:00 | NUR ---
Dr fink and NORRIS Villalpando here to see patient. PT continues to have episodes of coughing sharri when supine - dr's notified.
[2020-09-20] MEDS: INSULIN REGULAR, HUMAN 300 UNIT/3 ML VIAL SQ PRN ×2 (12:14→16:33)
[2020-09-20 12:26] VITALS: BP 114/61
[2020-09-20] MEDS ORDERED: DEXTROSE 50% 50 ML DISP.SYRIN IV PRN (13:45)
--- NOTE | 2020-09-20 15:00 | NUR ---
Pt 0xygen able to be tapered to 4 liters with saturation of 93%. PT desaturated on 3 liter o2 to 87% and was not able to tolerate. Put o2 back to 4 liters via n/c
[2020-09-20 16:25] VITALS: BP 95/48
--- NOTE | 2020-09-20 18:14 | NUR ---
pt's cough managed with Robitussin as ordered. pt states that the medication is mildly effective.
--- NOTE | 2020-09-20 19:45 | NUR ---
PATIENT ALERT ORIENTED, NO SOB NO CHEST PAIN. PATIENT TELE MONITOR SINUS RHYTHM AT THIS TIME. PATIENT AFEBRILE, STILL HAVE COUGH NON PRODUCTIVE, WILL MEDICATE FOR COUGH ORDERED, CONT ON DROPLET PRECAUTION, CALL LIGHT WITHIN REACH.
[2020-09-20] MEDS: SIMVASTATIN 20 MG TABLET PO SCH (20:28)
[2020-09-20] MEDS: INSULIN GLARGINE,HUM 300 UNITS/3 ML CARTRIDGE SQ SCH (20:40)
[2020-09-20] MEDS: INSULIN REGULAR, HUMAN 300 UNITS/3 ML VIAL SQ PRN (20:41)
[2020-09-20 21:19] VITALS: BP 100/50
[2020-09-21 01:04] VITALS: BP 110/54
[2020-09-21] MEDS: BLOOD SUGAR DIAGNOSTIC 1 EACH STRIP VI SCH ×4 (05:33→22:04)
[2020-09-21 06:00] VITALS: BP 92/58
[2020-09-21] MEDS: glipiZIDE 5 MG TABLET PO SCH ×2 (06:54→16:53)
[2020-09-21] MEDS: LISINOPRIL 20 MG TABLET PO SCH (08:56)
[2020-09-21] MEDS: ASPIRIN 81 MG TAB.CHEW PO SCH (08:56)
[2020-09-21] MEDS: GUAIFENESIN/CODEINE 5 ML LIQUID UDC PO PRN ×3 (08:56→18:07)
[2020-09-21] MEDS: ENOXAPARIN SODIUM 40 MG/0.4 ML DISP.SYRIN SQ SCH (08:57)
[2020-09-21] MEDS: TRIAMCINOLONE ACET 0.1% OINT 80 GM TUBE TP SCH ×2 (08:58→16:54)
[2020-09-21] MEDS: INSULIN REGULAR, HUMAN 300 UNIT/3 ML VIAL SQ PRN ×3 (08:59→16:57)
[2020-09-21 11:58] VITALS: BP 113/62
[2020-09-21] MEDS: DEXAMETHASONE SOD PHOSPHATE 4 MG INJ IV SCH (12:32)
[2020-09-21 15:58] VITALS: BP 116/63
--- NOTE | 2020-09-21 16:00 | NUR ---
PT desaturated to 88% 02 sat at 4 liters. able to get o2 to 91% on 6 liters. Jasmyn PISANO notified. abg and cxr done. RT put pt on simple mask @ 10 liters. with sat of 96 %. Awaiting CXR. result. Call light is within reach.
[2020-09-21 16:45] LABS: ABG BASE EXCESS 0.5 mmol/L; ABG HCO3 24.5 mmol/L; ABG PCO2 37.3 mmHg (35.0-45.0); ABG PH 7.435 (7.350-7.450); ABG PO2 61.3 mmHg (75.0-100.0); ABG SITE LEFT RADIAL; ABG TOTAL HEMOGLOBIN 12.4 G/dL (13.5-18.0); COHb 1.3 % (0.5-1.5); MetHb 0.1 % (0.0-1.5); O2Hb 89.5 % (94.0-97.0)
--- NOTE | 2020-09-21 18:30 | NUR ---
Vannesa here to see patient. Tanja PISANO new order received for HIgh flow oxygen ordered. changed status to KELIN.
--- NOTE | 2020-09-21 19:45 | NUR ---
PATIENT ALERT ORIENTED, NO SOB NO CHEST PAIN. PATIENT DESATURATED AT 4 LITERS A MIN OF OXYGEN. COMPUTER TECHNOLOGY TRAINER ORDERED TO PUT PATIENT ON HIGH FLOW OXYGEN SATURATING 92%. PATIENT STILL HAS COUGH, CONT TO MONITOR.
[2020-09-21 20:18] VITALS: BP 158/52
[2020-09-21] MEDS ORDERED: VANCOMYCIN IV 1,500 MG in IV DEXTROSE 5% 500 ML IV ONE (21:00)
[2020-09-21] MEDS ORDERED: ACETAMINOPHEN 650 MG/20.3 ML LIQUID UDC PO ONE (21:30)
[2020-09-21] MEDS ORDERED: diphenhydrAMINE 50 MG/1 ML VIAL IV ONE (21:30)
[2020-09-21] MEDS: CEFEPIME HCL 2 G in IV DEXTROSE 5% 100 ML IV SCH (21:58)
[2020-09-21] MEDS ORDERED: TOCILIZUMAB 400 MG in IV NORMAL SALINE 80 ML IV ONE (22:00)
[2020-09-21] MEDS ORDERED: CEFEPIME HCL 1 G in IV DEXTROSE 5% 50 ML IV SCH (22:00)
[2020-09-21] MEDS: SIMVASTATIN 20 MG TABLET PO SCH (22:04)
[2020-09-21] MEDS: INSULIN REGULAR, HUMAN 300 UNITS/3 ML VIAL SQ PRN (22:12)
[2020-09-21] MEDS: INSULIN GLARGINE,HUM 300 UNITS/3 ML CARTRIDGE SQ SCH (22:12)
--- NOTE | 2020-09-21 22:18 | NUR ---
benadryl injection enter manually, medication unscannable.
[2020-09-22 00:09] VITALS: BP 111/67
[2020-09-22 04:15] VITALS: BP 104/64
[2020-09-22] MEDS: BLOOD SUGAR DIAGNOSTIC 1 EACH STRIP VI SCH ×4 (06:41→21:33)
[2020-09-22] MEDS: glipiZIDE 5 MG TABLET PO SCH ×2 (06:42→16:36)
--- NOTE | 2020-09-22 06:53 | NUR ---
PATIENT ALERT ORIENTED, NO SOB NO CHEST. PATIENT TELE MONITOR SINUS RHYTHM SINUS NATAN WHEN ASLEEP. PATIENT ON HIGH FLOW OXYGEN AT 10LPM, NO DESATURATION NOTED, PATIENT HAS FEW EPISODE OF COUGHING NOTED, CONT TO MONITOR.
--- NOTE | 2020-09-22 07:45 | NUR ---
Pt alert and oriented x 4. PT states he has been on the simple mask throughout the shift last night. Clarified in computer that theres an order for High flow oxygen. Spoke with RT Robert if he can set up pt on high flow oxygen as ordered from last night. 0815 Pt set up on hgih flow by RT.
[2020-09-22] MEDS: DEXAMETHASONE SOD PHOSPHATE 4 MG INJ IV SCH (08:29)
[2020-09-22] MEDS: ASPIRIN 81 MG TAB.CHEW PO SCH (08:29)
[2020-09-22] MEDS: LISINOPRIL 20 MG TABLET PO SCH (08:32)
[2020-09-22] MEDS: TRIAMCINOLONE ACET 0.1% OINT 80 GM TUBE TP SCH ×2 (08:33→16:38)
[2020-09-22] MEDS: INSULIN REGULAR, HUMAN 300 UNIT/3 ML VIAL SQ PRN ×3 (08:51→16:52)
[2020-09-22] MEDS: ENOXAPARIN SODIUM 40 MG/0.4 ML DISP.SYRIN SQ SCH (08:53)
[2020-09-22] MEDS: GUAIFENESIN/CODEINE 5 ML LIQUID UDC PO PRN (08:54)
[2020-09-22] MEDS: CEFEPIME HCL 2 G in IV DEXTROSE 5% 100 ML IV SCH ×2 (09:00→21:21)
[2020-09-22 09:55] LABS: BASOPHILS % (AUTO) 0.2 % (0.0-2.0); EOSINOPHILS % (AUTO) 0.1 % (0.0-7.0); HEMATOCRIT 34.6 % (36.7-47.1); HEMOGLOBIN 11.6 g/dL (12.5-16.3); LYMPHOCYTES # (AUTO) 0.6 K/uL (20.0-40.0); LYMPHOCYTES % (AUTO) 5.7 % (20.5-51.5); MEAN CORPUSCULAR HEMOGLOBIN 28.4 uug (23.8-33.4); MEAN CORPUSCULAR HGB CONC 33 g/dL (32.5-36.3); MEAN CORPUSCULAR VOLUME 84.8 fL (73.0-96.2); MONOCYTES # (AUTO) 0.5 K/uL (2.0-10.0); MONOCYTES % (AUTO) 4.7 % (0.0-11.0); NEUTROPHILS # (AUTO) 9.6 K/uL (1.8-8.9); NEUTROPHILS % (AUTO) 89.3 % (38.5-71.5); PLATELET COUNT (AUTO) 639 K/uL (152-348); RED BLOOD CELL COUNT(AUTO) 4.07 MIL/uL (4.06-5.63); WHITE BLOOD COUNT (AUTO) 10.8 K/uL (3.6-10.2)
--- NOTE | 2020-09-22 10:00 | NUR ---
Pt IV leaking and not patent anymore. Pt states that he doesnt want to be poked many time to start an IV. Pt agreeable with getting a midline. Called die engraving supervisor for for midline nurse. unable to hang abx secondary to no IV access.
[2020-09-22 10:11] LABS: BILIRUBIN,DIRECT 0.2 mg/dL (0.0-0.2); BILIRUBIN,TOTAL 0.4 mg/dL (0.2-1.0); CREATININE 1.1 mg/dL (0.6-1.3); MAGNESIUM 2.4 mg/dL (1.8-2.4); PHOSPHOROUS 3.3 mg/dL (2.5-4.9); POTASSIUM 4.7 mmol/L (3.5-5.1); TOTAL PROTEIN, SERUM 7.3 g/dL (6.4-8.2)
--- NOTE | 2020-09-22 11:36 | NUR ---
Per nursing office Midline nurse will be here for pt @ eta of 1300.
[2020-09-22 12:00] VITALS: BP 115/62
[2020-09-22] MEDS ORDERED: VANCOMYCIN IV 1,250 MG in IV DEXTROSE 5% 250 ML IV SCH (15:00)
--- NOTE | 2020-09-22 15:18 | NUR ---
Practice Manager notified that Midline nurse still not here. Practice Manager attempt to get MIDLINE nurse to come
[2020-09-22 16:00] VITALS: BP 105/59
--- NOTE | 2020-09-22 16:00 | NUR ---
Midline started on right brachial by midline nurse PAOLA (midline nurse) PT tolerated procedure. Spoke with pharmacist recommend to give Vanco now and give ABX early at 1900.
--- NOTE | 2020-09-22 18:29 | NUR ---
Pt is in no acute distress. Call light is within reach. RT tapered high flow to Fi02 @65% - 35lit 02 sat at 95%. Pt much more comfortable with the high flow o2 compared to yesterdays nc 4lit. PT using less accessory muscle and no sob noted.
[2020-09-22 20:15] VITALS: BP 105/53
[2020-09-22] MEDS: SIMVASTATIN 20 MG TABLET PO SCH (21:25)
[2020-09-22] MEDS: INSULIN GLARGINE,HUM 300 UNITS/3 ML CARTRIDGE SQ SCH (21:31)
[2020-09-23 00:09] VITALS: BP 121/67
--- NOTE | 2020-09-23 01:24 | NUR ---
PT ON CONT HIGH FLOW @ 70% @ 35L/M -SAT 93% APPROX. CHANGE H20 , PT STABLE. Karely MINER TRAINING AND DEVELOPMENT PROFESSIONAL Addendum: 09/23/20 at 0127 by AYO MINER RT Amended: Links added.
[2020-09-23 04:09] VITALS: BP 121/67
[2020-09-23 04:15] VITALS: BP 93/47
--- NOTE | 2020-09-23 06:00 | NUR ---
Pt rested well in between care; needs attended; made comfortable. continue to monitor.
[2020-09-23] MEDS: GUAIFENESIN/CODEINE 5 ML LIQUID UDC PO PRN (06:41)
[2020-09-23] MEDS: BLOOD SUGAR DIAGNOSTIC 1 EACH STRIP VI SCH ×4 (06:48→21:04)
--- NOTE | 2020-09-23 06:53 | NUR ---
RT is called because O2 sat is 83-85% on high flow. pt had cough syrup at this time.
[2020-09-23 07:05] LABS: CREATININE 1.2 mg/dL (0.6-1.3); POTASSIUM 4.9 mmol/L (3.5-5.1)
[2020-09-23] MEDS: glipiZIDE 5 MG TABLET PO SCH ×2 (08:50→16:30)
[2020-09-23] MEDS: ASPIRIN 81 MG TAB.CHEW PO SCH (08:50)
[2020-09-23] MEDS: ENOXAPARIN SODIUM 40 MG/0.4 ML DISP.SYRIN SQ SCH (08:51)
[2020-09-23] MEDS: LISINOPRIL 20 MG TABLET PO SCH (08:51)
[2020-09-23] MEDS: TRIAMCINOLONE ACET 0.1% OINT 80 GM TUBE TP SCH ×2 (08:52→16:37)
[2020-09-23 08:53] VITALS: BP 138/75
[2020-09-23] MEDS: DEXAMETHASONE SOD PHOSPHATE 4 MG INJ IV SCH (09:28)
[2020-09-23] MEDS: CEFEPIME HCL 2 G in IV DEXTROSE 5% 100 ML IV SCH ×2 (09:31→20:51)
[2020-09-23] MEDS: INSULIN REGULAR, HUMAN 300 UNIT/3 ML VIAL SQ PRN ×2 (11:25→16:37)
[2020-09-23] MEDS: VANCOMYCIN IV 1,250 MG in IV DEXTROSE 5% 250 ML IV SCH (11:37)
[2020-09-23 12:06] VITALS: BP 101/44
[2020-09-23 16:14] VITALS: BP 102/54
--- NOTE | 2020-09-23 18:26 | NUR ---
Pt, left in bed rest AAOX4. vitals stable, afebrile, Hemodynamically stable. IV line patent.
--- NOTE | 2020-09-23 19:30 | NUR ---
PATIENT ALERT, ORIENTED, NO SOB NO CHEST PAIN. PATIENT ON TELE MONITOR SINUS RHYTHM SINUS NATAN. PATIENT STILL HAVE NON PRODUCTIVE COUGH, REQUESTED COUGH MEDICATION. PATIENT ON HIGH FLOW OXYGEN 70%, 35 LPM, OXYGEN SAT 94%, NO COMPLAIN OF PAIN. CONT TO MONITOR.
[2020-09-23] MEDS: SIMVASTATIN 20 MG TABLET PO SCH (20:50)
[2020-09-23] MEDS: GUAIFENESIN/DEXTROMETHORPHAN 5 ML UDC PO PRN (20:50)
[2020-09-23] MEDS: INSULIN REGULAR, HUMAN 300 UNITS/3 ML VIAL SQ PRN (21:02)
[2020-09-23] MEDS: INSULIN GLARGINE,HUM 300 UNITS/3 ML CARTRIDGE SQ SCH (21:03)
[2020-09-24 00:06] VITALS: BP 105/62
[2020-09-24 04:30] VITALS: BP 131/51
[2020-09-24] MEDS: GUAIFENESIN/DEXTROMETHORPHAN 5 ML UDC PO PRN ×2 (04:43→18:42)
[2020-09-24] MEDS: BLOOD SUGAR DIAGNOSTIC 1 EACH STRIP VI SCH ×4 (05:53→20:50)
--- NOTE | 2020-09-24 05:53 | NUR ---
PATIENT ALERT ORIENTED, NO SOB NO CHEST PAIN, ON HIGH FLOW OXYGEN ORDERED, SAT 94-99%. PATIENT STILL HAS NON PRODUCTIVE COUGH, GIVEN COUGH MEDS ORDERED, AND INHALER WITH HELP FOR THE COUGH. CONT TO MONITOR.
[2020-09-24] MEDS: glipiZIDE 5 MG TABLET PO SCH ×2 (06:55→17:37)
--- NOTE | 2020-09-24 08:00 | NUR ---
Awake, alert, oriented x 4, sitting at the edge of the bed. O2 at 35L Hi Flow FIO2 70% with O2 sat of 90%
[2020-09-24 08:26] LABS: CREATININE 1.1 mg/dL (0.6-1.3); POTASSIUM 4.3 mmol/L (3.5-5.1)
[2020-09-24] MEDS: VANCOMYCIN IV 1,250 MG in IV DEXTROSE 5% 250 ML IV SCH (08:52)
[2020-09-24] MEDS: ASPIRIN 81 MG TAB.CHEW PO SCH (08:53)
[2020-09-24] MEDS: DEXAMETHASONE SOD PHOSPHATE 4 MG INJ IV SCH (08:53)
[2020-09-24] MEDS: LISINOPRIL 20 MG TABLET PO SCH (09:00)
[2020-09-24] MEDS: TRIAMCINOLONE ACET 0.1% OINT 80 GM TUBE TP SCH ×2 (09:02→17:38)
[2020-09-24] MEDS: ENOXAPARIN SODIUM 40 MG/0.4 ML DISP.SYRIN SQ SCH (09:03)
[2020-09-24 09:04] VITALS: BP 98/43
[2020-09-24] MEDS: CEFEPIME HCL 2 G in IV DEXTROSE 5% 100 ML IV SCH ×2 (10:12→20:16)
[2020-09-24 11:00] VITALS: BP 102/67
--- NOTE | 2020-09-24 12:00 | NUR ---
BG 224; Insulin sliding scale given as ordered.
[2020-09-24] MEDS: INSULIN REGULAR, HUMAN 300 UNIT/3 ML VIAL SQ PRN ×2 (12:36→17:39)
[2020-09-24 16:00] VITALS: BP 121/55
--- NOTE | 2020-09-24 18:00 | NUR ---
Patient started coughing and choking while eating. Able to breathe better after a few minutes. Diet changed.
--- NOTE | 2020-09-24 19:30 | NUR ---
RECEIVED PT AWAKE,ALERT AND ORIENTEDX3. PT ON HIGH FLOW OXYGEN. IV INTACT. PT TOLERATED IT WELL. PT ON HEART MONITOR AND SINUS RHYTHM.PT IN NO ACUTE DISTRESS. SAFETY AND COMFORT PROVIDED. WILL CONTINUE TO MONITOR.
[2020-09-24 20:00] VITALS: BP 106/54
[2020-09-24] MEDS: SIMVASTATIN 20 MG TABLET PO SCH (20:16)
[2020-09-24] MEDS: INSULIN GLARGINE,HUM 300 UNITS/3 ML CARTRIDGE SQ SCH (21:29)
[2020-09-24] MEDS: INSULIN REGULAR, HUMAN 300 UNITS/3 ML VIAL SQ PRN (21:30)
[2020-09-24] MEDS: ACETAMINOPHEN 325 MG TABLET PO PRN (22:03)
[2020-09-25] VITALS: BP 112/54
[2020-09-25] MEDS ORDERED: VANCOMYCIN 1000 MG VIAL ONE (01:52)
[2020-09-25] MEDS ORDERED: VANCOMYCIN HCL 500 MG VIAL ONE (01:53)
[2020-09-25] MEDS: VANCOMYCIN IV 1,250 MG in IV DEXTROSE 5% 250 ML IV SCH ×2 (02:42→21:00)
[2020-09-25 04:00] VITALS: BP 111/56
[2020-09-25] MEDS: BLOOD SUGAR DIAGNOSTIC 1 EACH STRIP VI SCH ×5 (06:46→21:00)
[2020-09-25] MEDS: glipiZIDE 5 MG TABLET PO SCH ×2 (06:46→16:06)
[2020-09-25 07:55] LABS: CREATININE 1.1 mg/dL (0.6-1.3); POTASSIUM 4.3 mmol/L (3.5-5.1)
--- NOTE | 2020-09-25 08:10 | NUR ---
PT SLEPT INTERMITTENTLY. PT IN NO ACUTE DISTRESS. PRESCRIBED MEDICATION GIVEN AND PT TOLERATED IT WELL. TYLENOL PRN GIVEN PT REQUEST . IV INTACT. OXYGEN ON HIGH FLOW. recent blood sugar 91. SAFETY AND COMFORT PROVIDED. WILL ENDORSE TO INCOMING NURSE FOR CONTINUITY OF CARE.
[2020-09-25] MEDS: DEXAMETHASONE SOD PHOSPHATE 4 MG INJ IV SCH (08:25)
[2020-09-25] MEDS: ASPIRIN 81 MG TAB.CHEW PO SCH (08:25)
[2020-09-25] MEDS: LISINOPRIL 20 MG TABLET PO SCH (08:26)
[2020-09-25] MEDS: ENOXAPARIN SODIUM 40 MG/0.4 ML DISP.SYRIN SQ SCH (08:28)
[2020-09-25] MEDS: CEFEPIME HCL 2 G in IV DEXTROSE 5% 100 ML IV SCH ×2 (08:28→22:34)
[2020-09-25] MEDS: TRIAMCINOLONE ACET 0.1% OINT 80 GM TUBE TP SCH ×2 (08:31→16:06)
[2020-09-25 08:45] VITALS: BP 95/61
[2020-09-25] MEDS: GUAIFENESIN/DEXTROMETHORPHAN 5 ML UDC PO PRN ×2 (10:17→22:33)
[2020-09-25 11:14] VITALS: BP 122/57
[2020-09-25] MEDS: INSULIN REGULAR, HUMAN 300 UNIT/3 ML VIAL SQ PRN ×2 (11:15→17:03)
--- NOTE | 2020-09-25 12:10 | NUR ---
patient is alert, oriented x4, continue on high flow o2, saturating between 92-95% able to tolerate meds and meals.
--- NOTE | 2020-09-25 13:47 | NUR ---
patient noted with episodes of in and out of rahel villeda, checked on patient, patient stated he feels ok, he does not feel any palpitations, continue to monitor Addendum: 09/25/20 at 1350 by ELIANA FONSECA RN, RN patient stated he was trying to change his position
[2020-09-25 15:12] VITALS: BP 104/57
--- NOTE | 2020-09-25 17:47 | NUR ---
report given to [facility] nurse name Jean
--- NOTE | 2020-09-25 18:49 | NUR ---
patient has full dentures wearing them
--- NOTE | 2020-09-25 21:00 | NUR ---
ambulance came and refused to garbage pick up man pt because they can not do bipap during transport; referred situation to Ludmila, case management director and Genna Curran ORTHOPEDIC NURSE PRACTITIONER and pt as well; pt will be transferred to [facility] at 1300 p/u; Ludmila will inform [facility].
--- NOTE | 2020-09-25 21:30 | NUR ---
Pt refused regular insulin coverage for sliding scale but agreed to have Lantus
[2020-09-25] MEDS: SIMVASTATIN 20 MG TABLET PO SCH (22:34)
[2020-09-25] MEDS: ACETAMINOPHEN 325 MG TABLET PO PRN (22:47)
[2020-09-25] MEDS: INSULIN GLARGINE,HUM 300 UNITS/3 ML CARTRIDGE SQ SCH (22:53)
--- NOTE | 2020-09-26 04:24 | NUR ---
PT BEEN ON HIGH FLOW CONT, 75% @ 35L/M, DECREASE TO 70% , SAT 95%, CHANGE H20 FOR HIGH FLOW X 1, PT STABLE. Karely MINER SOLID WASTE TECHNICIAN Addendum: 09/26/20 at 0425 by AYO MINER RT Amended: Links added.
[2020-09-26] MEDS: glipiZIDE 5 MG TABLET PO SCH ×2 (07:14→16:47)
[2020-09-26] MEDS: BLOOD SUGAR DIAGNOSTIC 1 EACH STRIP VI SCH ×4 (07:26→21:38)
[2020-09-26 07:30] VITALS: BP 101/58
[2020-09-26] MEDS: DEXAMETHASONE SOD PHOSPHATE 4 MG INJ IV SCH (08:32)
[2020-09-26] MEDS: ASPIRIN 81 MG TAB.CHEW PO SCH (08:32)
[2020-09-26] MEDS: CEFEPIME HCL 2 G in IV DEXTROSE 5% 100 ML IV SCH ×2 (08:34→21:42)
[2020-09-26] MEDS: LISINOPRIL 20 MG TABLET PO SCH (08:51)
[2020-09-26] MEDS: ENOXAPARIN SODIUM 40 MG/0.4 ML DISP.SYRIN SQ SCH (09:00)
[2020-09-26] MEDS: TRIAMCINOLONE ACET 0.1% OINT 80 GM TUBE TP SCH ×2 (09:46→17:00)
--- NOTE | 2020-09-26 11:54 | NUR ---
Pt refused blood draw earlier this morning. Educated as to importance, patient still refused. Will monitor and assess.
[2020-09-26 12:00] VITALS: BP 126/64
[2020-09-26] MEDS: VANCOMYCIN IV 1,250 MG in IV DEXTROSE 5% 250 ML IV SCH (15:00)
[2020-09-26 16:00] VITALS: BP 96/56
--- NOTE | 2020-09-26 19:45 | NUR ---
RN called [facility] to give update; [facility] staff stated, they can not accommodate the patient tonight because they dont have the staff tonight and maybe call tomorrow; also ambulance came at this time; informed them that we need to cancel this transfer. Genna VILLASEÑOR THIRD COOK made aware; Soft Work Wrapper Layer And Examiner made aware; unable to hold porter sample case at this time; will endorse;
--- NOTE | 2020-09-26 20:00 | NUR ---
Spoke to patient and patient's daughter regarding the cancelled transfer today; Pt's daughter also suggested if RT could start the O2 weaning process; Pt requestedfor sleeping medication; Genna Curran LIME SPREADER ordered ambien 5mg prn; will give med to pt once verified.
[2020-09-26 20:36] VITALS: BP 97/47
[2020-09-26] MEDS ORDERED: ZOLPIDEM 5 MG TABLET PO PRN (21:15)
[2020-09-26] MEDS ORDERED: POTASSIUM CHLORIDE 20 MEQ POWDER PACKET ONE (21:18)
[2020-09-26] MEDS: GUAIFENESIN/DEXTROMETHORPHAN 5 ML UDC PO PRN (21:37)
[2020-09-26] MEDS: ACETAMINOPHEN 325 MG TABLET PO PRN (21:38)
[2020-09-26] MEDS: SIMVASTATIN 20 MG TABLET PO SCH (21:39)
[2020-09-26] MEDS: INSULIN GLARGINE,HUM 300 UNITS/3 ML CARTRIDGE SQ SCH (21:40)
--- NOTE | 2020-09-26 22:00 | NUR ---
blood sugar 160; pt refused RI coverage but ok to give Lantus.
[2020-09-27 04:35] VITALS: BP 108/64
[2020-09-27] MEDS: BLOOD SUGAR DIAGNOSTIC 1 EACH STRIP VI SCH ×4 (06:53→20:55)
[2020-09-27 08:00] VITALS: BP 100/59
[2020-09-27] MEDS: VANCOMYCIN IV 1,250 MG in IV DEXTROSE 5% 250 ML IV SCH ×3 (10:26→23:18)
[2020-09-27] MEDS: CEFEPIME HCL 2 G in IV DEXTROSE 5% 100 ML IV SCH ×2 (10:26→20:26)
[2020-09-27] MEDS: ASPIRIN 81 MG TAB.CHEW PO SCH (10:26)
[2020-09-27] MEDS: LISINOPRIL 20 MG TABLET PO SCH (10:27)
[2020-09-27 10:28] LABS: VANCOMYCIN,TROUGH 9.7 ug/mL (12.0-20.0)
[2020-09-27] MEDS: ENOXAPARIN SODIUM 40 MG/0.4 ML DISP.SYRIN SQ SCH (10:28)
[2020-09-27] MEDS: TRIAMCINOLONE ACET 0.1% OINT 80 GM TUBE TP SCH ×2 (10:28→16:10)
[2020-09-27] MEDS: DEXAMETHASONE SOD PHOSPHATE 4 MG INJ IV SCH (10:29)
[2020-09-27] MEDS: glipiZIDE 5 MG TABLET PO SCH ×3 (10:31→22:45)
[2020-09-27 10:32] LABS: POTASSIUM 4.1 mmol/L (3.5-5.1)
[2020-09-27] MEDS: INSULIN REGULAR, HUMAN 300 UNIT/3 ML VIAL SQ PRN (10:50)
--- NOTE | 2020-09-27 11:09 | NUR ---
Spoke with [facility] pharmacist unaware that pt's vanco level was 9.7. now just notified. Asked [facility] pharmacist if he wants to increase vanco dosage. Current dosage is 1250mg. Per prasanna instructed me to not give current dose of 1250mg vanco so he can increase dosage.
[2020-09-27 12:00] VITALS: BP 103/55
[2020-09-27 16:00] VITALS: BP 87/44
[2020-09-27] MEDS ORDERED: IV NORMAL SALINE 500 ML IV ONE (16:15)
--- NOTE | 2020-09-27 17:30 | NUR ---
Spoke with casemanagement. Pt is still accepted to [facility] but [facility] has no staff to take patient. Notified. DR MADDEN with hypotension 87/44. NS 500 Bolus started Will monitor patient. Pt asymptomatic.
--- NOTE | 2020-09-27 18:45 | NUR ---
B/P rechecked 105/65 - hr 75 - BOlus effective. Pt is in no acute distress. Call light is within reach.
--- NOTE | 2020-09-27 19:30 | NUR ---
RECEIVED PT IN NO ACUTE DISTRESS. IV INTACT. PT ON HIGH FLOW OXYGEN. SAFETY AND COMFORT PROVIDED. PT REQUESTING FOR MELATONIN MEDICATION FOR SLEEP AT NIGHT EVEN THOUGH PT HAVE AMBIEN. PT STATED HE WANTS MELATONIN RATHER THAN AMBIEN. WILL COTNINUE TO MONITOR.
[2020-09-27 20:21] VITALS: BP 104/55
[2020-09-27] MEDS: SIMVASTATIN 20 MG TABLET PO SCH (20:31)
[2020-09-27] MEDS: INSULIN GLARGINE,HUM 300 UNITS/3 ML CARTRIDGE SQ SCH (21:35)
[2020-09-27] MEDS: ACETAMINOPHEN 325 MG TABLET PO PRN (21:35)
[2020-09-27] MEDS: INSULIN REGULAR, HUMAN 300 UNITS/3 ML VIAL SQ PRN (21:36)
[2020-09-27] MEDS ORDERED: MELATONIN 3 MG TABLET PO PRN (22:00)
--- NOTE | 2020-09-27 23:00 | NUR ---
PT REFUSING FOR 0000H VITAL SIGNS STATING HE WANTS TO SLEEP. HE SAID STAFF CAN GET HIS VITAL SIGNS IN THE MORNING.
[2020-09-28 04:21] VITALS: BP 107/60
[2020-09-28] MEDS: BLOOD SUGAR DIAGNOSTIC 1 EACH STRIP VI SCH ×3 (06:52→16:07)
[2020-09-28] MEDS: glipiZIDE 5 MG TABLET PO SCH ×2 (06:52→15:58)
--- NOTE | 2020-09-28 06:57 | NUR ---
PT SLEPT INTERMITTENTLY. PT ON HIGH FLOW OXYGEN. PRESCRIBED MEDICATION GIVEN AND PT TOLERATED IT WELL. PT GIVEN MELATONIN PRN AT 2250H PER PT REQUEST. PT TOLERATED IT WELL. PT GIVEN TYLENOL AT 2135H PER PT REQUEST. PT TOLERATED IT WELL. PT REFUSED VITAL SIGNS AT 0000H. PT VITAL SIGNS WITHIN NORMAL LIMIT. SAFETY AND COMFORT PROVIDED. WILL ENDORSE TO INCOMING NURSE FOR CONTINUITY OF CARE.
[2020-09-28 07:54] LABS: POTASSIUM 4.3 mmol/L (3.5-5.1)
[2020-09-28 08:00] VITALS: BP 124/69
[2020-09-28] MEDS: INSULIN REGULAR, HUMAN 300 UNIT/3 ML VIAL SQ PRN ×3 (08:13→16:16)
[2020-09-28] MEDS: ASPIRIN 81 MG TAB.CHEW PO SCH (08:19)
[2020-09-28] MEDS: DEXAMETHASONE SOD PHOSPHATE 4 MG INJ IV SCH (08:19)
[2020-09-28] MEDS: ENOXAPARIN SODIUM 40 MG/0.4 ML DISP.SYRIN SQ SCH (08:20)
[2020-09-28] MEDS: TRIAMCINOLONE ACET 0.1% OINT 80 GM TUBE TP SCH ×2 (08:21→18:02)
[2020-09-28] MEDS: LISINOPRIL 20 MG TABLET PO SCH (08:32)
[2020-09-28] MEDS: CEFEPIME HCL 2 G in IV DEXTROSE 5% 100 ML IV SCH (10:04)
[2020-09-28 12:00] VITALS: BP 128/62
[2020-09-28] MEDS: VANCOMYCIN IV 1,250 MG in IV DEXTROSE 5% 250 ML IV SCH (12:21)
--- NOTE | 2020-09-28 17:55 | NUR ---
PATIENT WAS PLACED ON 6L NC, SATURATING 96-99%, DENIED SOB OR DISTRESS. AOX4. DC INSTRUCTIONS AND FORMS GIVEN TO EMT PERSONNEL. PATIENT AND FAMILY AWARE OF TRANSFER. SHAY MIDLINE IN PLACE FOR CONTINUITY OF IV MEDICATIONS POST DISCHARGE. REPORT GIVEN TO RASHAD IN [facility]. ID BAND REMOVED. ALL BELONGINGS WITH PATIENT.
[2020-09-29] MEDS ORDERED: DEXAMETHASONE SOD PHOSPHATE 4 MG INJ IV SCH (09:00)
[2020-10-02] MEDS ORDERED: DEXAMETHASONE SOD PHOSPHATE 4 MG INJ IV SCH (09:00)
== END 2020-09-28 18:00 | DRG 177 ==
LOC: TELE3 19:39 → TELE-TD3 09-21 19:52 → MEDSURG3 09-28 11:59
PROVIDERS: ADMIT Nurse Practitioner Acute Care; ATTEND Internal Medicine
PROC: XW033E5 Introduction of Remdesivir Anti-infective into Peripheral Vein, Percutaneous Approach, New Technology Group 5 (ICD-10-PCS; principal; 2020-09-14)
PROC: 05HY33Z Insertion of Infusion Device into Upper Vein, Percutaneous Approach (ICD-10-PCS; 2020-09-15)
PROC: XW13325 Transfusion of Convalescent Plasma (Nonautologous) into Peripheral Vein, Percutaneous Approach, New Technology Group 5 (ICD-10-PCS; 2020-09-16)
PROC: 05HY33Z Insertion of Infusion Device into Upper Vein, Percutaneous Approach (ICD-10-PCS; 2020-09-22)
DX: U07.1 COVID-19 (principal); J12.89 Other viral pneumonia; N17.0 Acute kidney failure with tubular necrosis; J96.01 Acute respiratory failure with hypoxia; G45.9 Transient cerebral ischemic attack, unspecified; E11.40 Type 2 diabetes mellitus with diabetic neuropathy, unspecified; E78.5 Hyperlipidemia, unspecified; D63.8 Anemia in other chronic diseases classified elsewhere; I10 Essential (primary) hypertension; L40.9 Psoriasis, unspecified; Z83.3 Family history of diabetes mellitus; Z86.73 Personal history of transient ischemic attack (TIA), and cerebral infarction without residual deficits; R53.1 Weakness; E66.9 Obesity, unspecified; Z68.33 Body mass index [BMI] 33.0-33.9, adult; Z79.4 Long term (current) use of insulin; R74.8 Abnormal levels of other serum enzymes; D47.3 Essential (hemorrhagic) thrombocythemia; T38.0X5A Adverse effect of glucocorticoids and synthetic analogues, initial encounter; Y92.89 Other specified places as the place of occurrence of the external cause
CPT/HCPCS: 36415; 36600; 70030-TC; 71045; 83605; 83615; 83735; 84100; 85025; 85610; 85730; 86140; 86803; 86850; 86900; 86901; 87040; 87806; A4663; G0378; J0456; J0692; J0696; J1100; J1200; J1650; J1815; J2405; J3262; J3370; J3490; J3535; J7030; J7040; J7050; J7060; P9016-BL; P9017-BL